=== PATIENT | female | born 1975 | race Caucasian/White ===

== ENCOUNTER 2020-04-05 18:53 | Emergency (ER) | payer MEDICARE, MEDICAID, SELFPAY ==
[2020-04-05 18:55] VITALS: BP 154/85; PULSE 93; RESP 19; TEMP 35.6; O2SAT 98; BMI 41.1
--- NOTE | 2020-04-05 19:06 | EKG12_ITS ---
Test Reason : CP Blood Pressure : / mmHG Vent. Rate : 088 BPM Atrial Rate : 088 BPM P-R Int : 196 ms QRS Dur : 086 ms QT Int : 342 ms P-R-T Axes : 060 007 063 degrees QTc Int : 413 ms Normal sinus rhythm Possible Left atrial enlargement Borderline ECG Confirmed by JAMES GONZALEZ, CAREY ([id number]), image editor MAY SOTO ([id number]) on 04/08/2020 11:47:42 A M Referred By: CL Confirmed By:STEPHANIE RAMIREZ MD
--- NOTE | 2020-04-05 19:14 | ED.DCSUM_ITS ---
History of Present Illness Chief Complaint: Fever Informant: Patient Narrative: 44-year-old female presents with concern for fevers and chest pain. Patient states that over the past 3 to 4 days she has had a worsening cough. States that she has chest pain during her cough as well as after. Describes it as right-sided and burning. States that she had a fever of 100.2 earlier today. States that she is also had nausea. Patient has some pain in her upper left abdomen which she attributes to coughing when she was bent over yesterday and felt this pain immediately. She was recently on antibiotic therapy for sinusitis. Patient is a current smoker. Denies any urinary symptoms. Past Medical History - Allergies and Home Meds Allergies/Adverse Reactions: Allergies amoxicillin Allergy (Verified 04/05/20 18:55) Rash codeine Allergy (Verified 04/05/20 18:55) PT UNSURE OF REACTION Gadolinium-MRI Contrast Medium Allergy (Verified 04/05/20 18:55) Hives Penicillins Allergy (Verified 04/05/20 18:55) Hives sulfamethoxazole [From Bactrim] Allergy (Verified 04/05/20 18:55) Rash trimethoprim [From Bactrim] Allergy (Verified 04/05/20 18:55) Rash Primary Care Physician: Marlon Cruz MD [Primary Care Provider] - Prior records reviewed: Yes Past Medical History: None Surgical History: noncontributory Lives: Alone Smoking Status: Current every day smoker Alcohol: None Drugs: None Review of Systems General: Denies: Chills, Fever, Sweats Eyes: Denies: Visual changes - bilaterally, Diplopia ENT: Denies: Rhinorrhea, Sore throat Cardiovascular: Reports: Chest pain. Denies: Palpitations Respiratory: Reports: Cough. Denies: Dyspnea, Dyspnea on exertion Gastrointestinal: Denies: Abdominal pain, Nausea, Vomiting, Diarrhea, Melena, Hematochezia Genitourinary: Denies: Dysuria, Hematuria, Frequency Musculoskeletal: Denies: Back pain, Extremity Pain Skin: Denies: Rash, Wounds Neurological: Denies: Headache, Weakness, Numbness Physical Exam Vital Signs/Narrative: Vital Signs Temp Pulse Resp BP Pulse Ox 04/05/20 18:55 96.0 F L 93 19 H 154/85 H 98 Inital Vital Signs reviewed: Yes General: Well nourished, Well developed, No Acute Distress Head: Normocephalic, Atraumatic Eyes: Perrl, EOMI ENT: Moist mucous membranes, No rhinorrhea Neck: Supple, Nontender Cardiovascular: Regular rate, Regular rhythm, No murmurs Respiratory: No distress, CTA bilaterally, Chest nontender Abdomen: Soft, Nontender, Nondistended, Normal bowel sounds Back: Nontender, Normal Inspection Extremities: Nontender, No edema Skin: Normal color, No rash Neurological: Alert, Oriented x3, Cranial nerves II-XII grossly intact, Normal Strength, Normal Sensation Psychological: Normal affect, Normal Mood Diagnostic/Tx/Re-eval Chest X-Ray - ED: 1 View, Read by ED Physician, Read by Radiologist, - - interstitial infiltrate Clinical Impression(s) from Imaging Studies Chest X-Ray 04/05/20 20:00 IMPRESSION: Minimal interstitial prominence. Vascular crowding versus vascular congestion versus mild infiltrate. Electronically Signed: Navid Berrios DO at 20:21 EST Tel [phone], Service support , Laboratory Data 04/05/20 04/05/20 19:20 19:20 WBC 12.4 H RBC 4.76 Hgb 13.4 Hct 40.9 MCV 85.9 MCH 28.2 MCHC 32.8 RDW Std Deviation 40.9 RDW Coeff of [place] 13.2 Plt Count 269 MPV 10.8 Immature Gran % (Auto) 0.400 Neut % (Auto) 76.5 H Lymph % (Auto) 18.4 L [place] % (Auto) 4.5 Eos % (Auto) 0.0 Baso % (Auto) 0.2 Absolute Neuts (auto) 9.5 H Absolute Lymphs (auto) 2.27 Nucleated RBC % 0 Sodium 138 Potassium 3.4 L Chloride 108 H Carbon Dioxide 26.0 Anion Gap 4 L BUN 8 Creatinine 0.85 Estim Creat Clear Calc 79.07 Est GFR (MDRD) Af Amer 93 Est GFR (MDRD) Non-Af 77 BUN/Creatinine Ratio 9.4 L Glucose 174 H Calcium 9.0 Troponin I < 0.015 - Rhythm Strip Rhythm Strip: Sinus Rhythm Rate: 88 Ectopy: None - EKG Initial EKG Interpretation: Sinus Rhythm - Normal sinus rhythm at 88 bpm. NE interval of 196 ms. QTC of 413 ms. No evidence of ST elevation or depression at this time. - Medical Decision Making Patient appears well and nontoxic. No hypoxemia. Afebrile. Mild leukocytosis. Chest x-ray interpreted by myself shows evidence of interstitial infiltrate. Radiology concurs. Coronavirus negative. Troponin negative. Patient's chest pain is only after she is coughing and is likely related to her pneumonia. Patient will be treated with with Azithromycin and cefdinir. Asked to return for new or worsening symptoms. Patient agreeable and discharged home in stable condition. Impression: 1. Community-acquired pneumonia 2. Tobacco abuse ED Disposition - Plan for ED Patient: Disposition: Home or Assisted Living Instructions: ED Pneumonia (Adult) Prescriptions: Cefdinir 300 mg PO BID #14 cap Prescription Printed Azithromycin [Zithromax] 250 mg PO DAILY #4 tab Prescription Printed Referrals: Marlon Cruz MD [Primary Care Provider] - 2 Days
[2020-04-05 19:34] LABS: Absolute Lymphocyte Count 2.27 X10^3/uL (0.83-4.51); Absolute Neutrophil Count 9.5 X10^3/uL (2.0-7.7); Basophil# 0.03 X10^3/uL; Basophil% 0.2 % (0-1); Hematocrit 40.9 % (37-47); Hemoglobin 13.4 g/dL (12.0-15.0); Lymphocyte # 2.27 X10^3/ul (4.0); Lymphocyte % 18.4 % (19-41); Mean Corp Hgb Conc 32.8 g/dL (32-36); Mean Corpuscular Hgb 28.2 pg (27.0-32.0); Mean Corpuscular Volume 85.9 fL (81-99); Mean Platelet Vol. 10.8 fl (6.2-12.0); Monocyte# 0.55 X10^3/uL; Monocyte% 4.5 % (0-10); NRBC Flagged by Analyzer 0 % (0-5); Neutrophil # 9.45 X10^3/uL (2.7-7.7); Neutrophil % 76.5 % (47-70); Platelet Count 269 K/mm3 (150-450); RBC Distribution Width CV 13.2 % (11.6-14.6); RBC Distribution Width SD 40.9 fl (35.1-43.9); Red Blood Count 4.76 M/mm3 (4.2-5.4); White Blood Count 12.4 K/mm3 (4.4-11.0)
[2020-04-05 19:50] LABS: Anion Gap 4 (5-15); BUN 8 mg/dL (7-18); BUN/Creat Ratio 9.4 RATIO (10-20); Chloride 108 mmol/L (98-107); Creatinine, Serum 0.85 mg/dL (0.55-1.02); EST Glomerular Filtration Rate 77 mL/min (>60); Est Glom Filt Rate - Afr Amer 93 mL/min (>60); Estimated Creatinine Clearance 79.07 ml/min; Glucose 174 mg/dL (74-106); Potassium 3.4 mmol/L (3.5-5.1); Sodium Level 138 mmol/L (136-145)
[2020-04-05 19:51] VITALS: BP 148/77; PULSE 87; RESP 16; O2SAT 98
[2020-04-05 19:58] VITALS: O2SAT 97
--- NOTE | 2020-04-05 20:00 | RAD_ITS ---
STUDY: X-RAY CHEST REASON FOR EXAM: Female, 44 years old. Cough. Fever. Shortness of breath for 3 to 4 days. Abdominal pain and nausea. TECHNIQUE: Single AP portable view of the chest. COMPARISON: None. FINDINGS: Telemetry wires overlie the chest. Limited inspiratory effort. Question minimally increased perihilar interstitial prominence although this may be due to a limited inspiratory effort. There is no demonstrated pleural abnormality. Normal size heart. Normal mediastinum and brendan. Normal visualized pulmonary arteries. Normal visualized aortic arch and descending thoracic aorta. Normal visualized thoracic spine. Normal visualized ribs, clavicles, and shoulders. There is no demonstrated abnormality of the visualized soft tissue structures of the upper abdomen. RAD/Chest 1 View (Portable) IMPRESSION: Minimal interstitial prominence. Vascular crowding versus vascular congestion versus mild infiltrate. Electronically Signed: Navid Berrios DO at 20:21 EST Tel [phone], Service support ,
[2020-04-05] MEDS: Ondansetron 4 MG/2 ML Vial IV (20:10)
[2020-04-05] MEDS: Azithromycin 250 MG Tablet 500 MG PO (21:01)
[2020-04-05] MEDS: Cefdinir 300 MG Capsule PO (21:01)
[2020-04-05 21:02] VITALS: BP 124/74; PULSE 80; RESP 16; TEMP 37.1; O2SAT 98
== END 2020-04-05 21:04 | disposition home or self-care (01) ==
PROVIDERS: Emergency Provider Emergency Medicine
DX: J18.9 Pneumonia, unspecified organism (principal); F17.200 Nicotine dependence, unspecified, uncomplicated; Z88.0 Allergy status to penicillin; Z88.1 Allergy status to other antibiotic agents; Z88.2 Allergy status to sulfonamides
CPT/HCPCS: 71045; 80048; 84484; 85025; 87426; 93005; 96374; 99285; J2405